=== PATIENT | female | born 1930 | race Native Hawaiian/Other Pacific Islander ===

== ENCOUNTER 2018-12-27 18:05 | Emergency (ER) | payer OTHER ==
[~2018-12-27] VITALS: Ht 152.4 cm; Wt 47.6 kg
[2018-12-27 18:05] VITALS: BP 149/59; TEMP 97.5
[2018-12-27] MEDS ORDERED: BOOST PO (20:10)
[2018-12-27] MEDS ORDERED: DOCU100C10 PO (20:11)
[2018-12-27] MEDS ORDERED: DULOXETINE HCL30 MG PO (20:12)
[2018-12-27] MEDS ORDERED: IRON (FERROUS S50 MG PO (20:13)
[2018-12-27] MEDS ORDERED: LEVO0.0723 PO (20:16)
[2018-12-27] MEDS ORDERED: REMERON SOLTAB15 MG PO (20:17)
[2018-12-27] MEDS ORDERED: COZAAR25 MG PO (20:17)
[2018-12-27] MEDS ORDERED: VITAMIN B-121000 MC2 PO (20:20)
[2018-12-27] MEDS ORDERED: OXYB5TAB64 PO (20:20)
[2018-12-27] MEDS ORDERED: VITAMIN D50000 UNIT PO (20:21)
== END 2018-12-27 18:52 | disposition other institution (70) ==
LOC: ED 18:11
DX: F03.91 Unspecified dementia, unspecified severity, with behavioral disturbance (principal); Z04.6 Encounter for general psychiatric examination, requested by authority
CPT/HCPCS: 93005; 99285